=== PATIENT | female | born 1960 | race Caucasian/White ===

== ENCOUNTER 2016-06-12 12:35 | Inpatient (IN) | payer OTHER ==
[~2016-06-12] VITALS: Ht 167.6 cm; Wt 108.9 kg
--- NOTE | ~2016-06-12 | HC ---
[facility] [place] [address] CONSULTATION Name: ROSEMARY KNAPP Room #: 459-P [facility] IN M.R.#: [id number] Admission: 06/12/16 Attend Phys: Shemar Prince MD Discharge: 06/17/16 Date of : 62 Report #: [id number] THIS REPORT FOR: //name// CC: [facility] physician/PCP Shemar Prince HISTORY OF PRESENT ILLNESS: The patient is a 56-year-old white female with history of hypertension, hypothyroidism and exogenous obesity who tripped on a step. She sustained a left arm fracture of the radius and ulna as well as the right elbow, essentially nondisplaced right radial neck fracture. She was seen by orthopedics. She ended up undergoing open reduction and internal fixation of the left radius and ulna fracture with an ulnar nerve decompression on 06/13. She is to use the splint of the left upper extremity and is to use a sling for the right elbow except when going to the bathroom. We are seeing her in rehabilitation medicine consultation. PAST MEDICAL HISTORY: Includes prior cervical neck fusion, exogenous obesity, hypertension, and hypothyroidism. PAST SURGICAL HISTORY: Hysterectomy, tonsillectomy, , and the above noted cervical spine fusion. MEDICATIONS: Please see the full medication listing. ALLERGIES: No known drug allergies. 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 She lives in a house with her and son, 3 steps in, did not utilize gait aids, works daytime caregiver. She notes that her son could assist and also her mother could stay with her as well. REVIEW OF SYSTEMS: Did not offer any current complaints of chest pain, shortness of breath or abdominal discomfort. She notes she was not on nasal prong O2 premorbidly. She has some discomfort as expected of her bilateral elbows. No focal lower extremity pain complaints. PHYSICAL EXAMINATION: GENERAL: A 56-year-old white female, in no obvious distress. She is alert and pleasant. She is on 1 liter nasal prong O2. Facies are symmetric. EXTREMITIES: The left arm is in a splint. She does have some distal swelling of the left hand and fingers. She does have some movement of the thumb and fingers. Some discomfort with movement. Her right upper extremity is in a sling. I did not test at the elbow very much, but she has good range of motion of the wrist in flexion, extension as well as movement of the thumb and fingers. Bilateral lower extremities, no focal calf swelling, functional range of motion, strength is grade 4+ -4/5. DTRs are 1. There is no clonus. [address] [address] CONSULTATION Name: ROSEMARY KNAPP Room #: 459-P [facility] IN M.R.#: [id number] Admission: 06/12/16 Attend Phys: Shemar Prince MD Discharge: 06/17/16 Date of : 62 Report #: [id number] ASSESSMENT: A 56-year-old white female with the following problem list: 1. Bilateral elbow fractures. 2. Left elbow radius and ulnar fracture with dislocation, status post open reduction and internal fixation with left radial head replacement and lateral ligament complex repair along with ulnar nerve decompression 06/13/2016. 3. Sling, right elbow except when going to the bathroom. 4. Hypertension. 5. Renal failure, possible acute tubular necrosis that appears to be improving. 6. Relatively hypoxia, currently needing nasal prong O2. 7. Hypothyroidism. 8. Exogenous obesity. PLAN: Therapy evaluations are underway. We will be glad to follow along with you regarding her rehab therapy needs. <ELECTRONICALLY SIGNED> By: Samir Arauz MD 06/18/16 1539 1214 [id number] Samir Arauz MD /nt
--- NOTE | ~2016-06-12 | HC ---
[facility] [place] [address] CONSULTATION Name: ROSEMARY KNAPP Room #: 459-P ADM IN M.R.#: [id number] Admission: 06/12/16 Attend Phys: Shemar Prince MD Discharge: Date of : 62 Report #: [id number] THIS REPORT FOR: //name// CC: [facility] physician/PCP Shemar Prince DATE OF SERVICE: 06/12/2016 REASON FOR CONSULTATION: Left elbow fracture dislocation. HISTORY OF PRESENT ILLNESS: The patient is a 56-year-old female who fell landing on her left arm. She had significant deformity and significant severe pain. I was called by the emergency department to aid in splint application and possible reduction of the fracture. Her exam was moderately limited due to her significant pain and some sedation. REVIEW OF SYSTEMS: MUSCULOSKELETAL: Denies any other injuries. Other review of systems was unable to be obtained again due to the patient's significant pain and sedation. PAST MEDICAL HISTORY: Significant for hypertension, hypothyroidism. ALLERGIES: No known drug allergies. Prior to this, this information is obtained from the medical record. MEDICATIONS: Include fluticasone, progesterone, estradiol, sertraline, metoprolol, levothyroxine. PAST SURGICAL HISTORY: Cervical spine fusion, x 3, hysterectomy, and tonsillectomy. 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 Denies smoking or drinking alcohol. She is right hand dominant. PHYSICAL EXAMINATION: VITAL SIGNS: Her blood pressure was fairly low in the emergency department. This is managed by the emergency room doctor. Her most recent vital signs on 06/13/2016 are temperature 37.9, heart rate 80, respiratory rate 22, blood pressure 101/54, pulse oximetry is 94%. GENERAL: She is awake, alert. She is in a moderate amount of distress due to her elbow pain and deformity. EXTREMITIES: Examination of her left upper extremity shows skin is clean, dry and intact. She has no bleeding or skin wounds. Sensory exam was difficult to obtain. Her EPL was intact. Abduction and adduction was intact. She had no tenderness in the hand, tenderness at the DRUJ. No foveal or radius or ulnar tenderness. Exquisite tenderness upon attempting to palpate her elbow and no [address] [address] CONSULTATION Name: ROSEMARY KNAPP Room #: 459-P [facility] IN [facility].#: [id number] Admission: 06/12/16 Attend Phys: Shemar Prince MD Discharge: Date of : 62 Report #: [id number] significant shoulder tenderness. The rest of the exam was able to be undertaken this morning on 06/13/2016 when the patient was in less pain with regard to her left elbow and it was appropriately splinted. The right upper extremity skin is clean, dry and intact. Sensation is intact to light touch throughout. She has brisk capillary refill. She noted a full fist, full extension. There is no tenderness to palpation to the right forearm, wrist or hand. There is moderate lateral epicondyle and radial neck tenderness. She has near full range of motion with some pain at end range. There is no shoulder pain and her shoulder moves without pain. Left upper extremity exam again was repeated today on June 13 which shows her arm splinted in extension. Abduction and adduction is intact. Flexion, extension is intact and sensation is intact to light touch throughout the entire hand. Bilateral lower extremity sensation is intact to light touch throughout. She has brisk capillary refill. EHL, FHL, dorsiflexion and plantar flexion are intact. She has no tenderness to palpation to the bilateral feet, legs, ankles or hips. No pain with range of motion of bilateral hips, knees, ankles or feet. RADIOGRAPHS: AP and somewhat lateral view of the left elbow show a significantly displaced proximal radius and ulna fractures. Post-splint placement x-rays do not show change in alignment. Right knee x-rays were reviewed, which did not show any definite acute fracture. Laboratory studies done on June 12, 2016 show white blood cell count 13.0, hemoglobin 13.7, hematocrit 41.7, platelet count 330. IMPRESSION AND PLAN: Left proximal olecranon and radial head fracture with probable ligamentous injury. The patient required conscious sedation for splint application and I attempted to place the fracture in better alignment by keeping the elbow in an extended position. She tolerated this well under conscious sedation by the ER doctor. She was placed in a very well-padded bulky Kerr type posterior splint and her abduction and adduction and extension was intact post reduction. CT scan was ordered, which showed significant comminution of the radial head with displacement and comminution of the ulna. The distal humerus appeared to be intact. I am ordering a right radiograph to be done in the preoperative holding area prior to surgery. We discussed the diagnosis as well as treatment options of the patient's left elbow injury. We discussed this is a fairly severe injury and required surgical stabilization for optimum outcome. We discussed that she will have some level of elbow stiffness; however, with significant amount of physical therapy her elbow motion should be functional. The other risks of surgery would be infection, damage to vessels or nerves, nonunion, malunion, hardware failure, hardware irritation. We also discussed decompression of the ulnar nerve, the typical procedure as well as postoperative course. She will require at least approximately 3-4 months of [facility] [address] [place] [address] CONSULTATION Name: ROSEMARY KNAPP Room #: 459-P ADM IN M.R.#: [id number] Admission: 06/12/16 Attend Phys: Shemar Prince MD Discharge: Date of : 62 Report #: [id number] physical therapy. Questions were encouraged and answered to the best of my ability. A portion of this discussion was done in the emergency department, but due to her mental status and distraction with her pain, the majority of this discussion was done in the preoperative holding area on June 13. Questions were encouraged and answered to the best of my ability. I will await to see the results of the right elbow x-rays prior to proceeding with surgery on the left. <ELECTRONICALLY SIGNED> By: Lauren Ward MD 06/17/16 1213 0853 1057 Lauren Ward MD /nt
--- NOTE | ~2016-06-12 | O ---
[facility] [place] [address] OPERATIVE REPORT Name: ROSEMARY KNAPP Room #: 459-P ADM IN M.R.#: [id number] Admission: 06/12/16 Attend Phys: Shemar Prince MD Discharge: Date of : 62 Report #: [id number] THIS REPORT FOR: //name// CC: [facility] physician/PCP Shemar Prince DATE OF SERVICE: 06/13/2016 POSTOPERATIVE DIAGNOSES: 1. Left complex elbow fracture dislocation. 2. Left proximal ulna comminuted fracture. 3. Left radial head fracture dislocation. 4. Left lateral ligamentous complex injury. PROCEDURE PERFORMED: 1. Open reduction and internal fixation, left comminuted olecranon fracture. 2. Left radial head replacement. 3. Left lateral ligament repair. 4. Left ulnar nerve decompression at the elbow. SURGEON: Lauren Ward MD ANESTHESIA: General mask. ESTIMATED BLOOD LOSS: 50 mL. TOURNIQUET TIME: 120 minutes. COMPLICATIONS: None. CONDITION: Stable. DISPOSITION: Recovery room. IMPLANTS USED: 1. Synthes proximal olecranon locking plate. 2. [facility] radial head replacement, 6.5 +2 with a 20 mm head. INDICATIONS: The patient is a 56-year-old female with the above-mentioned diagnosis. We discussed the diagnosis as well as treatment options. We discussed the significant risk of elbow stiffness and the need for at least 3-4 months of physical therapy. We discussed the risks, benefits, alternatives, complications including but not limited to infection and stiffness, infection, damage to vessels or nerves, nonunion, malunion, hardware failure, hardware irritation and stiffness. Informed consent was obtained. The correct extremity was identified and labeled by myself after verbal confirmation of the patient as [facility] [place] [place] [address] OPERATIVE REPORT Name: ROSEMARY KNAPP Room #: 459-P ADM IN M.R.#: [id number] Admission: 06/12/16 Attend Phys: Shemar Prince MD Discharge: Date of : 62 Report #: [id number] well as visual confirmation and signed informed consent. DESCRIPTION OF PROCEDURE: The patient was brought back to the operating room, placed on the operating table in supine position. She received preoperative antibiotics. Tourniquet was placed over padding on the patient's left upper extremity. The left upper extremity was sterilely prepped and draped in usual fashion. A final time out was taken to verify the correct patient, operative procedure, operative site, all concurred. The arm was elevated, exsanguinated and the tourniquet inflated. Next, a posterior longitudinal incision was made on the ulna curving radially around the olecranon. Full thickness flaps were created. The ulnar nerve was identified posterior to the medial epicondyle and it was decompressed through Romo's fascia to be in good condition. Next, the fracture site was easily identified. It was cleaned of clot and debris. Three pieces of the radial head were extruded. These were significantly displaced completely devoid of any soft tissue attachments. At this point, decision was made to replace the radial head. The radial head was attempted to be visualized through the olecranon fracture; however, this was not able to be done and so Janett's interval was then used, the lateral ligamentous complex appeared to have avulsed from the lateral epicondyle. There was also a separate piece fragment distally at its ulnar insertion that was very thin wall of cortical bone where it was detached that resulted in instability. Janett's interval was entered and careful attention placed to avoiding any retraction anteriorly. The annular ligament was incised, although it had already been torn and the radial neck was identified, it was broached using broaches to 6.5 sized and a trial 20 mm head which matched, the parts that were taken out was placed, it was checked under fluoroscopy, it was found to be in good position; however, there was some instability and so eventually a 6.5 with a +2 was placed. This was found to be much more stable and there was no gapping or decrease in space at the medial aspect of the ulnohumeral joint indicating that the joint was overstuffed. The elbow was taken through flexion and extension, there was noted some instability. This was felt to be due to the ligamentous injury as well as the surgical dissection. AP, lateral and live fluoroscopic views were taken to evaluate the position of the ulnar head, position of the radial head. The trial implant was then removed and attention was taken to the ulna. The coronoid was comminuted. There were medial and lateral fragments, but the main 2 fragments were very large. The proximal and distal fragments, they were easily anatomically reduced. Once this was reduced, the Synthes locking plate was applied to the bone. It was applied with K wires and fluoroscopy was brought in and AP and lateral views were used to evaluate the position. The triceps was split as well in order to improve plate placement directly down to bone. Once the plate position was evaluated and found to be appropriate, a locking screw was placed into the proximal fracture fragment and then a compression mode was used to place a cortical screw distally. Next, fluoroscopy was brought in to evaluate the position. The AP, lateral and live fluoroscopic view showed good position of the hardware and the bony alignment. Next, the remaining holes were drilled, measured and appropriate size screws were placed, some of the mid portion holes [facility] [address] [place] [address] OPERATIVE REPORT Name: ROSEMARY KNAPP Room #: 459-P ADM IN M.R.#: [id number] Admission: 06/12/16 Attend Phys: Shemar Prince MD Discharge: Date of : 62 Report #: [id number] were unable to be drilled due to impingement upon the screws. The fixation was felt to be very stable. Next, drill holes were created in the ulna for the transosseous suture repair of the insertion of the lateral ulnar collateral ligament. A #2 FiberWire was used. Next, a right pedicle suture anchor was drilled at approximately the center aspect of the lateral epicondyle, it was tamped in place and the sutures were engaged to the tamp. Next, prior to placing the sutures, the trial radial head was again placed. The fluoroscopy was used to evaluate the position and a 6.5 mm +2 with a 20 mm head was chosen, this was felt to be stable and did not overstuff the joint. The implant was then placed without difficulty, again taking care to avoid any retraction anteriorly or immediately. Next, the elbow was taken through a range of motion. Next, the insertion of the lateral ulnar collateral ligament was repaired using transosseous sutures of #2 FiberWire and then the remainder of the annular ligament was repaired using 0 Tevdek and then the remainder of the lateral ulnar collateral ligament and the Janett's interval was closed using the braided nonabsorbable suture from the large suture anchor. This was felt to be very stable. The elbow was taken through a full range of motion. There was no subluxation. There was no instability. There was a very mild amount of medial-sided laxity; however, no gross instability in the radial and the lateral side was felt to be very stable. Elbow was taken through a full range of motion using live fluoroscopy and the elbow joint moved smoothly. There was again no subluxation or instability. She had full forearm rotation without any evidence of any impingement or block. The wound was thoroughly irrigated prior to closing the capsule or the annular ligament. The wound was thoroughly irrigated actually prior to placing the plates. The small medial and lateral fracture fragments in the cortex of the ulna were evaluated. These were on the lateral side, it was a very thin piece of cortical bone and with repair of the surrounding muscles this fragment was maintained in excellent position. The other fragment was also maintained in good alignment with repair of the overlying muscles. This was done with 2-0 Vicryl suture, the subcutaneous tissue was closed with 2-0 Vicryl. The proximal and distal portions of the incisions were infiltrated with approximately 10 mL 0.25% Marcaine total. This was done in order to avoid injection around the nerves in order for me to be able to assess the nerves postoperatively. The wound was closed with katya and covered with an Aquacel dressing. She was placed in a bulky compressive dressing. Prior to closing the wound, the wrist was evaluated. The lateral views were taken, which showed a reduced DRUJ. The DRUJ was assessed in pronation and supination and neutral and she had a nice stable DRUJ. She was placed in a posterior slab splint to immobilize including the wrist in neutral rotation and the elbow was flexed approximately 30 degrees. She tolerated the procedure well. All fingers are pink with brisk capillary refill at the conclusion of the case after deflation of tourniquet. All sponge, needle counts [facility] [address] [place] [address] OPERATIVE REPORT Name: ROSEMARY KNAPP Room #: 459-P [facility] IN .R.#: [id number] Admission: 06/12/16 Attend Phys: Shemar Prince MD Discharge: Date of : 62 Report #: [id number] were correct. The patient transferred to postoperative recovery room in stable condition. <ELECTRONICALLY SIGNED> By: Lauren Ward MD 06/17/16 1213 1249 1433 Lauren Ward MD /nt
--- NOTE | ~2016-06-12 | EKG ---
[address] [place] [address] ELECTROCARDIOGRAM REPORT Name: ROSEMARY KNAPP Room #: 459-P ADM IN M.R.#: [id number] Admission: 06/12/16 Attend Phys: Shemar Prince MD Discharge: Date of : 62 Report #: [id number] THIS REPORT FOR: //name// [facility] ED Test Date: 2016-06-12 Test Time: 15:14:11 Pat Name: ROSEMARY KNAPP Department: Room: [facility] Gender: F Occup Ther: freddy : 1960 Requested By: Ajay Sharma Order Number: [id number] MD: Lenard Mar Measurements Intervals [place] Rate: 73 P: 54 [place]: 196 QRS: 79 QRSD: 107 T: 59 QT: 437 QTc: 482 Interpretive Statements Sinus rhythm no significant abnormalities Compared to ECG 12/31/2015 14:34:19 T-wave abnormality no longer present Electronically Signed On 06-13-2016 15:18:59 CDT by Lenard Mar [email or web address] <ELECTRONICALLY SIGNED> By: Lenard Mar MD, [facility] 06/13/16 1518 1514 151 Lenard Mar MD, [facility] /EPI
--- NOTE | ~2016-06-12 | HC ---
[facility] [address] [place] [address] CONSULTATION Name: SILVINA KNAPPH Room #: 459-P ADM IN M.R.#: [id number] Admission: 06/12/16 Attend Phys: Shemar Prince MD Discharge: Date of : 62 Report #: [id number] THIS REPORT FOR: //name// CC: [facility] physician/PCP Shemar Prince DATE OF SERVICE: 06/12/2016 CHIEF COMPLAINT: Left elbow fracture dislocation. HISTORY OF PRESENT ILLNESS: The patient is a . By: 1526 11 Lauren Ward MD /nt
[~2016-06-12 12:35] MED LIST: ALDACTONE25 MG PO; ESTRADIOL 1 MG T1 M1 PO; FLONASE 0.05%50 MCG NASAL; LEVOTHYROXIN0.125 M1 PO; LOPRESSOR50 PO; PROGESTERONE100 MG PO; SERTRALINE HCL50 MG PO; SPIRONOLACTONE25 M1 PO
[2016-06-12 12:36] VITALS: BP 91/49
[2016-06-12 14:54] LABS: ABSOLUTE NEUTROPHILS 8.5 thou/uL (1.4-8.2); BASOPHILS 0.6 % (0.0-2.0); EOSINOPHILS 3.2 % (0.0-3.0); HEMATOCRIT 41.7 % (37.0-47.0); HEMOGLOBIN 13.7 gm/dL (12.0-15.0); LYMPHOCYTES 23.7 % (24.0-44.0); MCH 29.5 pg (26.0-34.0); MCHC 32.8 g/dL (28.0-37.0); MONOCYTES 6.8 % (1.0-8.0); PLATELET COUNT 330 thou/uL (150-400); POLYS 65.7 % (36.0-66.0); RBC 4.63 mil/uL (4.20-5.00); RDW 14.3 % (10.5-14.5)
[2016-06-12 14:58] LABS: CALCIUM 9.1 mg/dL (8.5-10.1); CREATININE 1.4 mg/dL (0.6-1.3)
[2016-06-12 15:00] LABS: POTASSIUM 3.7 mmol/L (3.5-5.1)
[2016-06-12 15:03] LABS: ALBUMIN 3.6 g/dL (3.4-5.0); TOTAL BILIRUBIN 0.5 mg/dL (<0.1-1.0); TOTAL PROTEIN 7.9 g/dL (6.4-8.2)
[2016-06-12 15:11] LABS: MANUAL DIFF NO
[2016-06-12 15:12] LABS: INR 1.1; PROTIME 11.7 Seconds (9.3-11.4)
[2016-06-12 17:40] VITALS: BP 78/24
[2016-06-12 20:36] VITALS: BP 91/46
[2016-06-12 23:38] VITALS: BP 85/44
[2016-06-13] VITALS (11 sets, daily range): BP systolic 101–121; BP diastolic 46–79
[2016-06-13 05:59] LABS: MCH 29.9 pg (26.0-34.0); MCHC 32.6 g/dL (28.0-37.0); MCV 91.5 fL (80.0-100.0); RBC 3.61 mil/uL (4.20-5.00); RDW 14.5 % (10.5-14.5); WBC 11.9 thou/uL (4.0-11.0)
[2016-06-13 06:13] LABS: HEMOGLOBIN 10.8 gm/dL (12.0-15.0)
[2016-06-13 06:14] LABS: CREATININE 1.9 mg/dL (0.6-1.3); POTASSIUM 4.2 mmol/L (3.5-5.1)
[2016-06-14 04:00] VITALS: BP 130/70
[2016-06-14 06:11] LABS: HEMATOCRIT 33.3 % (37.0-47.0); HEMOGLOBIN 10.9 gm/dL (12.0-15.0); MCH 29.7 pg (26.0-34.0); MCHC 32.6 g/dL (28.0-37.0); MCV 91.3 fL (80.0-100.0); RBC 3.65 mil/uL (4.20-5.00); WBC 12.9 thou/uL (4.0-11.0)
[2016-06-14 06:34] LABS: CALCIUM 8.4 mg/dL (8.5-10.1); POTASSIUM 3.8 mmol/L (3.5-5.1)
[2016-06-14 07:45] VITALS: BP 127/60
[2016-06-14 11:59] VITALS: BP 134/72
[2016-06-14 15:35] VITALS: BP 131/63
[2016-06-14 19:53] VITALS: BP 104/53
[2016-06-15 03:37] VITALS: BP 129/63
[2016-06-15 05:32] LABS: HEMATOCRIT 28.1 % (37.0-47.0); HEMOGLOBIN 9.3 gm/dL (12.0-15.0); MCH 30.1 pg (26.0-34.0); MCHC 33.1 g/dL (28.0-37.0); MCV 90.8 fL (80.0-100.0); RBC 3.09 mil/uL (4.20-5.00); RDW 14.3 % (10.5-14.5); WBC 8.8 thou/uL (4.0-11.0)
[2016-06-15 06:20] LABS: CALCIUM 8.3 mg/dL (8.5-10.1); CREATININE 0.8 mg/dL (0.6-1.3); POTASSIUM 3.4 mmol/L (3.5-5.1)
[2016-06-15 08:07] VITALS: BP 113/64
[2016-06-15 12:38] VITALS: BP 129/62
[2016-06-15 15:33] VITALS: BP 134/65
[2016-06-15 20:08] VITALS: BP 12/68
[2016-06-16 04:00] VITALS: BP 129/81
[2016-06-16 06:46] LABS: HEMATOCRIT 27.4 % (37.0-47.0); HEMOGLOBIN 9.2 gm/dL (12.0-15.0); MCH 30.4 pg (26.0-34.0); MCHC 33.7 g/dL (28.0-37.0); MCV 90.2 fL (80.0-100.0); RBC 3.04 mil/uL (4.20-5.00); RDW 13.8 % (10.5-14.5); WBC 7.9 thou/uL (4.0-11.0)
[2016-06-16 06:56] LABS: CALCIUM 8.3 mg/dL (8.5-10.1); CREATININE 0.7 mg/dL (0.6-1.3); POTASSIUM 3.3 mmol/L (3.5-5.1)
[2016-06-16 08:00] VITALS: BP 143/61
[2016-06-16] MEDS ORDERED: LISINOPRIL20 MG PO (08:28)
[2016-06-16] MEDS ORDERED: MAXZIDE-25 MG1 EACH PO (10:23)
[2016-06-16 12:00] VITALS: BP 131/76
[2016-06-16 16:29] VITALS: BP 129/86
[2016-06-16 20:00] VITALS: BP 130/79
[2016-06-17 04:00] VITALS: BP 126/55
[2016-06-17 08:00] VITALS: BP 135/87
[2016-06-17 10:31] VITALS: BP 126/55
[2016-06-17 12:00] VITALS: BP 131/76
[2016-06-17] MEDS ORDERED: NORCO 5-325 TA1 EACH PO (12:21)
[2016-06-17 13:09] VITALS: BP 126/55
== END 2016-06-17 15:41 | disposition home or self-care (01) | DRG 500 ==
LOC: ER 12:35 → EROBS 15:11 → 4W 15:11
PROVIDERS: Emergency Medicine; Hospitalist; Internal Medicine
PROC: 0PRJ0JZ Replacement of Left Radius with Synthetic Substitute, Open Approach (ICD-10-PCS; principal; 2016-06-13)
PROC: 0RSMXZZ Reposition Left Elbow Joint, External Approach (ICD-10-PCS; principal; 2016-06-13)
PROC: 0MQ40ZZ Repair Left Elbow Bursa and Ligament, Open Approach (ICD-10-PCS; principal; 2016-06-13)
PROC: 0PSL04Z Reposition Left Ulna with Internal Fixation Device, Open Approach (ICD-10-PCS; principal; 2016-06-13)
PROC: 01N40ZZ Release Ulnar Nerve, Open Approach (ICD-10-PCS; principal; 2016-06-13)
PROC: 2W3 Placement, Anatomical Regions, Immobilization (ICD-10-PCS; principal; 2016-06-13)
DX: S52.022A Displaced fracture of olecranon process without intraarticular extension of left ulna, initial encounter for closed fracture (principal); N17.0 Acute kidney failure with tubular necrosis; D62 Acute posthemorrhagic anemia; S52.122A Displaced fracture of head of left radius, initial encounter for closed fracture; S52.124A Nondisplaced fracture of head of right radius, initial encounter for closed fracture; S52.134A Nondisplaced fracture of neck of right radius, initial encounter for closed fracture; S53.432A Radial collateral ligament sprain of left elbow, initial encounter; W10.8XXA Fall (on) (from) other stairs and steps, initial encounter; Y93.01 Activity, walking, marching and hiking; I95.9 Hypotension, unspecified; R09.02 Hypoxemia; E66.09 Other obesity due to excess calories; G47.30 Sleep apnea, unspecified; K21.9 Gastro-esophageal reflux disease without esophagitis; E66.9 Obesity, unspecified; I12.9 Hypertensive chronic kidney disease with stage 1 through stage 4 chronic kidney disease, or unspecified chronic kidney disease; N18.9 Chronic kidney disease, unspecified; E03.9 Hypothyroidism, unspecified; Z90.710 Acquired absence of both cervix and uterus; Z68.38 Body mass index [BMI] 38.0-38.9, adult; Y92.098 Other place in other non-institutional residence as the place of occurrence of the external cause; Y99.8 Other external cause status; Z82.49 Family history of ischemic heart disease and other diseases of the circulatory system; Z87.891 Personal history of nicotine dependence; Z79.899 Other long term (current) drug therapy
CPT/HCPCS: 10040; 10045; 50101; 50341; 50386; 51412; 52256; 55430; 56520; 56521; 56525; 56526; 56527; 56667; 57091; 62110; 62900; 64031; 70005

== ENCOUNTER → 2018-01-05 | Outpatient (CLI) | payer OTHER ==
[~2018-01-05] MED LIST changes: +LISINOPRIL20 MG PO; +MAXZIDE-25 MG1 EACH PO; +NORCO 5-325 TA1 EACH PO
== END ==
LOC: RAD 06:46
DX: Z12.31 Encounter for screening mammogram for malignant neoplasm of breast (principal)

== ENCOUNTER → 2018-01-11 | Outpatient (CLI) | payer OTHER | LOC: ULTRA 02:38 | DX: N60.01 Solitary cyst of right breast (principal) ==

== ENCOUNTER → 2018-05-15 | Outpatient (CLI) | payer OTHER | LOC: RAD 09:35 | DX: M17.12 Unilateral primary osteoarthritis, left knee (principal); M25.462 Effusion, left knee ==

== ENCOUNTER → 2018-11-14 | Outpatient (CLI) | payer OTHER | LOC: RAD 01:11 | DX: R92.8 Other abnormal and inconclusive findings on diagnostic imaging of breast (principal) ==

== ENCOUNTER → 2018-11-28 | Outpatient (CLI) | payer OTHER ==
[~2018-11-28] VITALS: Ht 167.6 cm; Wt 118.8 kg
[~2018-11-28] MED LIST changes: +SYNTHROID150 MCG PO; +VITAMIN D2000 UNIT PO
== END | disposition home or self-care (01) ==
LOC: GI 08:03
DX: Z12.11 Encounter for screening for malignant neoplasm of colon (principal); Z86.010 Personal history of colon polyps; K63.5 Polyp of colon; K57.30 Diverticulosis of large intestine without perforation or abscess without bleeding; K64.8 Other hemorrhoids; K21.9 Gastro-esophageal reflux disease without esophagitis; I10 Essential (primary) hypertension; E03.9 Hypothyroidism, unspecified; D64.9 Anemia, unspecified; H70.11 Chronic mastoiditis, right ear; G47.33 Obstructive sleep apnea (adult) (pediatric); Z98.890 Other specified postprocedural states; Z88.8 Allergy status to other drugs, medicaments and biological substances; Z79.899 Other long term (current) drug therapy; Z87.891 Personal history of nicotine dependence; Z90.710 Acquired absence of both cervix and uterus
CPT/HCPCS: 62110; 62900

== ENCOUNTER → 2018-12-18 | Outpatient (CLI) | payer OTHER | LOC: RAD 09:00 | DX: S60.221A Contusion of right hand, initial encounter (principal); X58.XXXA Exposure to other specified factors, initial encounter; Y93.89 Activity, other specified; Y92.89 Other specified places as the place of occurrence of the external cause; Y99.8 Other external cause status ==

== ENCOUNTER → 2019-01-08 | Outpatient (CLI) | payer OTHER ==
--- NOTE | 2019-01-10 08:21 | SLE ---
[facility] [place] [address] POLYSOMNOGRAPHY STUDY Name: ROSEMARY KNAPP Room #: [facility]#: [id number] Admission: 01/08/19 Attend Phys: Kyle De La Rosa MD Discharge: Date of : 62 Report #: [id number] THIS REPORT FOR: //name// CC: Kyle Freed DATE OF SERVICE: 01/08/2019 ATTENDING PHYSICIAN: Dr. Winston Gonzalez. The patient is 58 years old who weighs 270 pounds with a BMI of 43.6. The patient had a home sleep study and was found to have severe PAMELLA at an AHI of 90 per hour along with moderate to severe nocturnal hypoxia. The patient returned for in-lab CPAP titration study. During the night study, the patient spent 524 minutes in bed and slept for 317 minutes with a sleep efficiency of 60%. Sleep latency was 32 minutes with a REM latency of 309 minutes. Sleep architecture showed increased stage 1 sleep, normal stage 2 sleep, absent slow wave and reduced REM sleep, which was 13% of the total sleep time. EKG monitoring revealed an average heart rate of 76 beats per minute. No sustained arrhythmias observed. PLMS were seen at an index of 108 per hour and 29 per hour caused EEG arousals. The patient was started on CPAP at a pressure of 8 cm of water and titrated up to 15 cm of water. At the final pressure, the patient slept for 89 minutes. The patient had minimal supine sleep, but no REM sleep. Majority of the time was spent in lateral sleep. The patient's AHI was reduced to 4 per hour and oxygen saturation remained above 89%. IMPRESSION: 1. Severe sleep apnea diagnosed by home sleep study. 2. Severe periodic limb movements at an index of 108 per hour and 29 per hour caused EEG arousals. 3. Sleep maintainence insomnia. RECOMMENDATIONS: 1. CPAP at 15 cm water completely eliminated the patient's sleep apnea and should be used on a nightly basis. 2. Follow up in 4-6 weeks to assess compliance with CPAP and to document clinical improvement. I would also recommend review of the download data to make sure AHI is less than 5 per hour. The patient did not have REM sleep on [facility] [address] [place] [address] POLYSOMNOGRAPHY STUDY Name: ROSEMARY KNAPP [id number] Admission: 01/08/19 Attend Phys: Kyle De La Rosa MD Discharge: Date of : 62 Report #: [id number] the final pressure. 3. The patient had severe PLMS along with EEG arousals. The patient should be further evaluated for symptoms of restless legs during the day and if present, it can be treated with dopaminergic agonist agents. 4. Evaluate the patient's insomnia, if it persists despite effective use of CPAP. 5. Weight loss is strongly advised. 6. Avoid [employer] depressants. 7. Cautioned regarding driving until symptoms of sleep apnea resolve with the use of CPAP. <ELECTRONICALLY SIGNED> By: Kyle De La Rosa MD 01/10/19 0821 1820 1832 Kyle De La Rosa MD /nt
== END ==
LOC: SLEEPLAB 15:54
DX: G47.33 Obstructive sleep apnea (adult) (pediatric) (principal); G47.30 Sleep apnea, unspecified

== ENCOUNTER 2019-02-05 13:31 | Emergency (ER) | payer OTHER ==
[~2019-02-05] VITALS: Ht 167.6 cm; Wt 113.4 kg
[2019-02-05 14:27] LABS: ABSOLUTE NEUTROPHILS 5.7 thou/uL (1.4-8.2); BASOPHILS 0.9 % (0.0-2.0); EOSINOPHILS 3.5 % (0.0-3.0); HEMOGLOBIN 10.8 gm/dL (12.0-15.0); LYMPHOCYTES 24.1 % (24.0-44.0); MCH 24.4 pg (26.0-34.0); MCHC 31.8 g/dL (28.0-37.0); MCV 76.7 fL (80.0-100.0); PLATELET COUNT 310 thou/uL (150-400); POLYS 62.5 % (36.0-66.0); RBC 4.44 mil/uL (4.20-5.00); RDW 15.4 % (10.5-14.5); WBC 9.2 thou/uL (4.0-11.0)
[2019-02-05 14:34] LABS: ANION GAP 9 mmol/L (7-16); BUN 31 mg/dL (7-18); CALCIUM 9.9 mg/dL (8.5-10.1); CHLORIDE 101 mmol/L (98-107); CO2 26 mmol/L (21-32); CREATININE 1.4 mg/dL (0.6-1.0); GLUCOSE 105 mg/dL (74-106); POTASSIUM 3.2 mmol/L (3.5-5.1); SODIUM 136 mmol/L (136-145)
[2019-02-05 14:44] LABS: ALBUMIN 3.8 g/dL (3.4-5.0); DIRECT BILIRUBIN 0.1 mg/dL (<0.1-0.3); SGOT 31 U/L (15-37); SGPT 45 U/L (30-65); TOTAL BILIRUBIN 0.5 mg/dL (<0.1-1.0); TOTAL PROTEIN 7.9 g/dL (6.4-8.2); TROPONIN-I <0.06 ng/mL (<0.06)
[2019-02-05 16:54] VITALS: BP 116/44
--- NOTE | 2019-02-06 19:11 | EKG ---
[place] [address] [facility] [place] [address] ELECTROCARDIOGRAM REPORT Name: ROSEMARY KNAPP Room #: [facility] [id number] Admission: 02/05/19 Attend Phys: Discharge: 02/05/19 Date of : 62 Report #: [id number] THIS REPORT FOR: //name// [facility] ED Test Date: 2019-02-05 Test Time: 14:23:34 Pat Name: ROSEMARY KNAPP Department: Room: Gender: F [employer] Worker: DESTINEE : 1960 Requested By: Rachael Mesa Order Number: [id number] MD: Lenard Mar Measurements Intervals [place] Rate: 93 P: 16 VA: 219 QRS: 74 QRSD: 109 T: 4 QT: 362 QTc: 451 Interpretive Statements Sinus rhythm Prolonged VA interval Nonspecific ST segment abnormality Compared to ECG 06/12/2016 15:14:11 First degree AV block now present Electronically Signed On 02-06-2019 19:11:02 FRAME ASSEMBLER by Lenard Mar [email or web address] <ELECTRONICALLY SIGNED> By: Lenard Mar MD, [facility] 02/06/191910 1423 142 Lenard Mar MD, FAC /EPI
== END 2019-02-05 16:54 | disposition home or self-care (01) ==
LOC: ER 13:31
PROVIDERS: Emergency Medicine
DX: I95.1 Orthostatic hypotension (principal); R42 Dizziness and giddiness; I10 Essential (primary) hypertension; E03.9 Hypothyroidism, unspecified; K21.9 Gastro-esophageal reflux disease without esophagitis; Z90.710 Acquired absence of both cervix and uterus; Z86.2 Personal history of diseases of the blood and blood-forming organs and certain disorders involving the immune mechanism; Z98.890 Other specified postprocedural states; Z87.891 Personal history of nicotine dependence

== ENCOUNTER → 2019-03-30 | Outpatient (CLI) | payer OTHER ==
[~2019-03-30] MED LIST changes: +REQUIP 0.25 M0.25 MG PO; -VITAMIN D2000 UNIT PO; +VITAMIN D35000 UNI2 PO
[2019-03-30 13:15] VITALS: BP 144/74
[2019-03-30 14:50] VITALS: BP 158/65
--- NOTE | 2019-03-30 16:32 | NUR ---
IN FOR 1ST INJECTAFER INFUSION FOR IRON DEFICIENCY ANEMIA. STATED MAIN COMPLAINT IS FATIGUE. TOLERATED INFUSION WITHOUT INCIDENT. POST VITAL SIGNS STABLE. OBSERVED FOR 30 MINUTES, REMOVED IV AND DISMISSED IN STABLE CONDITION. TO RETURN NEXT TUESDAY FOR 2ND INFUSION.
== END ==
LOC: OPONC 10:30
DX: D50.9 Iron deficiency anemia, unspecified (principal)
CPT/HCPCS: 95000

== ENCOUNTER → 2019-04-06 | Outpatient (CLI) | payer OTHER ==
[2019-04-06 12:50] VITALS: BP 131/89
[2019-04-06 14:20] VITALS: BP 125/48
--- NOTE | 2019-04-06 14:35 | NUR ---
IN FOR 2ND INJECTAFER INFUSION. STATED HAD A MILD HEADACHE AFTER FIRST DOSE BUT RESOLVED QUICKLY. IV STARTED IN RAC AND INFUSED INJECTAFER OVER 30 MIN. AND TOLERATED WELL WITHOUT INCIDENT. OBSERVED FOR 30 MIN. AND THEN REMOVED IV. POST VITAL SIGNS GOOD. DISMISSED IN STABLE CONDITIOM.
== END ==
LOC: OPONC 09:45
DX: D50.9 Iron deficiency anemia, unspecified (principal); K90.49 Malabsorption due to intolerance, not elsewhere classified
CPT/HCPCS: 95000

== ENCOUNTER → 2019-10-22 | Outpatient (CLI) | payer OTHER | LOC: CAT 10:05 | PROVIDERS: ATTEND Pediatrics | DX: Z12.2 Encounter for screening for malignant neoplasm of respiratory organs (principal); Z87.891 Personal history of nicotine dependence ==

== ENCOUNTER → 2019-10-25 | Outpatient (CLI) | payer OTHER | LOC: BC 10:04 | DX: Z12.31 Encounter for screening mammogram for malignant neoplasm of breast (principal) ==

== ENCOUNTER → 2019-11-13 | Outpatient (CLI) | payer OTHER | LOC: LAB 10:39 | PROVIDERS: ATTEND Family Medicine | DX: Z03.818 Encounter for observation for suspected exposure to other biological agents ruled out (principal) ==

== ENCOUNTER → 2020-03-13 | Outpatient (CLI) | payer OTHER ==
[2020-03-13 09:30] LABS: ABSOLUTE NEUTROPHILS 5.7 thou/uL (1.4-8.2); BASOPHILS 0.7 % (0.0-2.0); HEMATOCRIT 43.9 % (37.0-47.0); HEMOGLOBIN 14.4 gm/dL (12.0-15.0); LYMPHOCYTES 21.1 % (24.0-44.0); MCH 30.2 pg (26.0-34.0); MCHC 32.9 g/dL (28.0-37.0); MONOCYTES 7.6 % (1.0-8.0); PLATELET COUNT 237 thou/uL (150-400); POLYS 65.6 % (36.0-66.0); RBC 4.77 mil/uL (4.20-5.00); RDW 13.1 % (10.5-14.5); WBC 8.7 thou/uL (4.0-11.0)
[2020-03-13 09:56] LABS: ALBUMIN 3.8 g/dL (3.4-5.0); ANION GAP 10 mmol/L (7-16); BUN 12 mg/dL (7-18); CALCIUM 10.2 mg/dL (8.5-10.1); CHLORIDE 105 mmol/L (98-107); CHOLESTEROL 170 mg/dL (<200); CO2 30 mmol/L (21-32); CREATININE 0.8 mg/dL (0.6-1.0); GLUCOSE 95 mg/dL (74-106); HDL CHOLESTEROL 47 mg/dL (>40); LDL CHOLESTEROL 105 mg/dL (<100); MAGNESIUM 2.2 mg/dL (1.8-2.4); POTASSIUM 4.1 mmol/L (3.5-5.1); SGOT 17 U/L (15-37); SGPT 31 U/L (30-65); SODIUM 145 mmol/L (136-145); TC:HDL 3.6 Ratio (Not establshd); TOTAL BILIRUBIN 0.2 mg/dL (0.2-1.0); TOTAL PROTEIN 7.6 g/dL (6.4-8.2); TRIGLYCERIDE 92 mg/dL (<150); VLDL 18 mg/dL (<40)
[2020-03-14 01:06] LABS: LUTEINIZING HORMONE (LH) 23.4 mIU/mL (()); TESTOSTERONE* 15 ng/dL (3-41)
[2020-03-14 02:07] LABS: GLYCOHEMOGLOBIN (HGB A1C) 5.7 % (4.8-5.6)
== END ==
LOC: LAB 08:12
PROVIDERS: ATTEND Family Medicine
DX: E03.9 Hypothyroidism, unspecified (principal); D50.9 Iron deficiency anemia, unspecified; I10 Essential (primary) hypertension; E55.9 Vitamin D deficiency, unspecified; Z78.0 Asymptomatic menopausal state

== ENCOUNTER → 2020-06-16 | Outpatient (CLI) | payer OTHER | LOC: LAB 13:48 | PROVIDERS: ATTEND Anesthesiology | DX: Z01.812 Encounter for preprocedural laboratory examination (principal); Z20.822 Contact with and (suspected) exposure to COVID-19 ==

== ENCOUNTER → 2020-10-14 | Outpatient (CLI) | payer OTHER | LOC: CAT 09:28 | PROVIDERS: ATTEND Family Medicine | DX: K82.0 Obstruction of gallbladder (principal); R19.5 Other fecal abnormalities; M48.061 Spinal stenosis, lumbar region without neurogenic claudication; Z90.710 Acquired absence of both cervix and uterus ==

== ENCOUNTER → 2020-11-05 | Outpatient (CLI) | payer OTHER | LOC: CAT 16:16 | PROVIDERS: ATTEND Pediatrics | DX: Z12.2 Encounter for screening for malignant neoplasm of respiratory organs (principal); Z87.891 Personal history of nicotine dependence ==

== ENCOUNTER 2021-03-20 13:05 | Emergency (ER) | payer OTHER ==
[~2021-03-20] VITALS: Ht 167.6 cm; Wt 112.5 kg
[2021-03-20 15:32] VITALS: BP 140/90
== END 2021-03-20 15:33 | disposition home or self-care (01) ==
LOC: ER 13:05
DX: S61.011A Laceration without foreign body of right thumb without damage to nail, initial encounter (principal); I10 Essential (primary) hypertension; E03.9 Hypothyroidism, unspecified; K21.9 Gastro-esophageal reflux disease without esophagitis; Z98.890 Other specified postprocedural states; Z90.710 Acquired absence of both cervix and uterus; Z90.89 Acquired absence of other organs; Z79.899 Other long term (current) drug therapy; Z87.891 Personal history of nicotine dependence; W54.0XXA Bitten by dog, initial encounter; Y93.89 Activity, other specified; Y92.89 Other specified places as the place of occurrence of the external cause; Y99.8 Other external cause status